=== PATIENT | male | born 1950 | race Caucasian/White ===

== ENCOUNTER 2016-08-05 09:09 | Day surgery (SDC) | payer OTHER ==
[~2016-08-05] VITALS: Ht 165.1 cm; Wt 75.7 kg
[2016-08-05] VITALS (13 sets, daily range): BP systolic 111–150; BP diastolic 73–97; PULSE 64–98; RESP 16–57; Ht 165.1 cm; Wt 75.7 kg
[~2016-08-05 09:09] MED LIST: CLINDAMYCIN 600 MG/50 ML D5W IVPB IVPB ONE; CLINDAMYCIN 600 MG/D5W (PMX) 50 ML IVPB ONE; FLUT9.9S NASAL; GABA100C14 PO; IBUP-1542 PO; LISI10TA2 PO; MECL25TA2 PO; PANT40TA3 PO; SOD CHLORIDE 0.9% 1,000 ML IV SCH; SULI150T39 PO; TAMS0.4C2 PO
[2016-08-05] MEDS ORDERED: BUPIVACAINE 0.25% (MPF) 30 ML INJ ONE (11:48)
[2016-08-05] MEDS ORDERED: POLYMYXIN/BACITRACIN 1L IRRIG ONE (11:48)
[2016-08-05] MEDS ORDERED: MIDAZOLAM 1 MG/ML 2 ML INJ ONE (11:58)
[2016-08-05] MEDS ORDERED: FENTAnyl 50 MCG/ML VIAL ONE (11:58)
[2016-08-05] MEDS ORDERED: DIPHENHYDRAMINE 50 MG INJ IV PRN (12:30)
[2016-08-05] MEDS ORDERED: hydrALAzine 20 MG INJ IV PRN (12:30)
[2016-08-05] MEDS ORDERED: LABETALOL HCL 20MG INJ IV PRN (12:30)
[2016-08-05] MEDS ORDERED: MEPERIDINE 25 MG INJ IV PRN (12:30)
[2016-08-05] MEDS ORDERED: ONDANSETRON 4 MG INJ IV PRN (12:30)
[2016-08-05] MEDS ORDERED: ROCURONIUM 50 MG INJ ONE (12:40)
[2016-08-05] MEDS ORDERED: GLYCOPYRROLATE 1 MG INJ ONE (12:40)
[2016-08-05] MEDS ORDERED: PROPOFOL 20 ML ONE (12:40)
[2016-08-05] MEDS ORDERED: LIDOCAINE 2% (SDV) 5 ML INJ ONE (12:40)
[2016-08-05] MEDS ORDERED: NEOSTIGMINE 3 MG/3 ML SYRINGE ONE (12:40)
[2016-08-05] MEDS ORDERED: ONDANSETRON 4 MG INJ ONE (12:41)
[2016-08-05] MEDS ORDERED: IBUPROFEN 800 MG TAB PO ONE (13:00)
[2016-08-05] MEDS: FENTAnyl 50 MCG/ML VIAL IV PRN ×2 (13:11→13:21)
--- NOTE | 2016-08-05 13:39 | OPR ---
DATE OF OPERATION: 08/05/2016 INDICATION: This is a 66-year-old male with a recurrent left inguinal hernia. He requests surgical repair. Risks, alternatives, benefits, and personnel were discussed with the patient. The patient expressed understanding and consents to the operation. PREOPERATIVE DIAGNOSIS: Recurrent left inguinal hernia. POSTOPERATIVE DIAGNOSIS: Recurrent left inguinal hernia. OPERATIONS: Open recurrent left inguinal hernia repair with Ultrapro hernia system mesh. SURGEON: Boston Acuña MD SPECIMENS: None. COMPLICATIONS: None. ANESTHESIA: General. DESCRIPTION OF PROCEDURE: The patient was taken to the OR and prepped and draped in the usual steri le fashion. Surgical timeout was performed. IV antibiotics were given. Left inguinal oblique inci kayla was made with a 10 blade. Dissection cautery was carried down to external oblique fascia. [place] e scar tissue was found. Additionally, there was an anteromedial hernia defect identified. This he rnia was then reduced. This area was then secured in place with the disk portion of the UltraPro he rnia system mesh and secured in place with interrupted 3-0 Vicryl and interrupted 0 Prolene. This m esh was fixed to the internal oblique and inguinal ligament. There was good hemostasis. Uri fas antoine was closed with interrupted 3-0 Vicryl. Skin was closed using skin gary. Local anesthesia w as injected. Dry dressings were applied. Dictated By: BOSTON DUFFY/IMELDA Conf#: [id number] DID#: [id number]
[2016-08-05] MEDS ORDERED: HYDROmorphONE 1 MG/ML SYG IM STA (16:00)
[2016-08-05] MEDS ORDERED: DIAZEPAM 5 MG TAB PO ONE (16:30)
== END 2016-08-05 16:50 | disposition home or self-care (01) ==
LOC: SDS 09:09
PROVIDERS: ATTEND Surgery
DX: K40.91 Unilateral inguinal hernia, without obstruction or gangrene, recurrent (principal); I10 Essential (primary) hypertension; E78.5 Hyperlipidemia, unspecified; E66.9 Obesity, unspecified; Z68.27 Body mass index [BMI] 27.0-27.9, adult; J45.909 Unspecified asthma, uncomplicated
CPT/HCPCS: 49505; C1781; J1170; J2175; J2250; J2405; J2710; J3010

== ENCOUNTER 2016-12-15 11:14 | Day surgery (SDC) | payer OTHER ==
[2016-12-15] VITALS (17 sets, daily range): BP systolic 102–142; BP diastolic 53–94; PULSE 66–88; RESP 11–22; Ht 165.1 cm; Wt 76.5 kg
[~2016-12-15] VITALS: Ht 165.1 cm; Wt 76.5 kg
[~2016-12-15 11:14] MED LIST changes: -CLINDAMYCIN 600 MG/D5W (PMX) 50 ML IVPB ONE; +GLYCOPYRROLATE 0.4 MG INJ ONE; +LIDOCAINE 2% (SDV) 5 ML INJ ONE; +NEOSTIGMINE 3 MG/3 ML SYRINGE ONE; +PROPOFOL 200 MG INJ ONE; +ROCURONIUM 50 MG INJ ONE; -SOD CHLORIDE 0.9% 1,000 ML IV SCH; +SUCCINYLCHOLINE CHLORIDE 100 MG/5 ML SYG IV ONE
[2016-12-15] MEDS ORDERED: VANCOMYCIN 1 GM in NS 250 ML IVPB ONE (11:30)
[2016-12-15] MEDS ORDERED: SOD CHLORIDE 0.9% 1,000 ML IV SCH (11:30)
[2016-12-15 12:47] LABS: ADD SCAN DIFF NO
[2016-12-15 12:49] LABS: BASOPHILS % 0.3 % (0.0-2.0); EOSINOPHILS # 0.1 10^3/ul (0.0-0.5); EOSINOPHILS % 1.4 % (0.0-7.0); HEMATOCRIT 49.7 % (42.0-52.0); HEMOGLOBIN 16.5 g/dl (14.0-18.0); LYMPHOCYTES # 2.2 10^3/ul (0.8-2.9); LYMPHOCYTES % 35.9 % (15.0-51.0); MEAN CORPUSCULAR HEMOGLOBIN 28.4 pg (29.0-33.0); MEAN CORPUSCULAR HGB CONC 33.2 g/dl (32.0-37.0); MEAN CORPUSCULAR VOLUME 85.7 fl (82.0-101.0); MEAN PLATELET VOLUME 9.5 fl (7.4-10.4); MONOCYTE # 0.5 10^3/ul (0.3-0.9); MONOCYTES % 8.2 % (0.0-11.0); NEUTROPHIL # 3.4 10^3/ul (1.6-7.5); NEUTROPHILS % 53.9 % (39.0-77.0); PLATELET COUNT 233 10^3/UL (140-415); RED CELL DISTRIBUTION WIDTH 14.1 % (11.5-14.5); WHITE BLOOD COUNT 6.2 10^3/ul (4.8-10.8)
--- NOTE | 2016-12-15 12:51 | RADRPT ---
PROCEDURE: XR Chest. CLINICAL INDICATION: Preoperative for left groin exploration. TECHNIQUE: Single frontal view. COMPARISON: 05/23/2014. FINDINGS: The lungs are clear. The heart size is normal. There is no pleural effusion. There is no pneumothorax. IMPRESSION: 1. Normal chest radiograph. 2. No change from 05/23/2014. RPTAT: QQ .Cortez Zimmer MD, MD Date Time Electronically viewed and signed by .Cortez Zimmer MD, MD on 12/15/2016 12:51 .R/
[2016-12-15 12:52] LABS: INR 0.95; PROTIME 12.7 Sec (12.2-14.2)
[2016-12-15 12:53] LABS: PARTIAL THROMBOPLASTIN TIME 30.1 Sec (25.0-35.0)
[2016-12-15 13:02] LABS: ALBUMIN/GLOBULIN RATIO 1.51; BILIRUBIN,INDIRECT 1.4 mg/dl (0-1.1); BILIRUBIN,TOTAL 1.4 mg/dl (0.2-1.3); TOTAL PROTEIN 8.3 g/dl (6.1-8.1)
[2016-12-15 13:04] LABS: CALCIUM 9.6 mg/dl (8.4-10.2); CREATININE 1.07 mg/dl (0.61-1.24); POTASSIUM 3.8 mmol/L (3.5-5.1)
[2016-12-15] MEDS ORDERED: FENTAnyl 50 MCG/ML VIAL ONE ×2 (15:40→16:43)
[2016-12-15] MEDS ORDERED: BUPIVACAINE 0.25%/EPI (SDV) 30 ML INJ ONE (15:56)
[2016-12-15] MEDS: FENTAnyl 50 MCG/ML VIAL IV PRN ×6 (16:49→17:34)
[2016-12-15] MEDS ORDERED: ONDANSETRON 4 MG INJ IV PRN (17:00)
[2016-12-15] MEDS ORDERED: ACETAMINOPHEN 500 MG TAB PO PRN (18:00)
--- NOTE | 2016-12-16 16:54 | RADRPT ---
Vent Rate: 76 bpm RR Interval: 0 msec VT Interval: 184 msec QRS Duration: 94 msec QT Interval: 386 msec QTC Interval: 434 msec P-R-T [place]: 53 - 40 - 59 degrees Normal sinus rhythm Normal ECG Electronically Signed By: [place] [id number]
--- NOTE | 2016-12-27 14:32 | OPR ---
DATE OF OPERATION: 12/15/2016 SURGEON: Peter Solorzano MD. PREOPERATIVE DIAGNOSIS: Chronic left groin pain. Rule out nerve entrapment. POSTOPERATIVE DIAGNOSIS: Chronic left groin pain. Rule out nerve entrapment. OPERATION PERFORMED: Left groin exploration and release of nerve entrapment. ANESTHESIA: General. INDICATION FOR PROCEDURE: The patient is known to me, he is a 66- year-old male who previously had repair of left inguinal hernia. He subsequently presented with continued left groin pain, suggestive of possible nerve entrapment. When the symptoms would not resolve, he requested a groin exploration and possible release of entrapped nerve. He consented and was scheduled for surgery. DESCRIPTION OF PROCEDURE: The patient was brought to the operating theatre and was placed under general anesthesia. The left groin was shaved, prepped and draped in the usual sterile fashion. Previous surgical incisional scar was re-incised with a #15 blade scalpel. The subcutaneous tissue was dissected with cautery down to the aponeurosis of the externa oblique. Very superiorly the aponeurosis was opened, the mesh was identified and structures consistent with possible entrapped nerves were identified and gently dissected out from under the mesh. Additional scar tissue in this area, which possibly may have consisted of nerve tissue, was resected, 2 pieces were resected and sent for pathology analysis. The wound was then irrigated. Minimal bleeding was controlled with cautery. The aponeurosis of the external oblique was reapproximated with running #4-0 Vicryl suture in the standard fashion. The skin incision was reapproximated with skin gary. The patient tolerated the procedure well. The patient was transported in stable condition to the Recovery room. ESTIMATED BLOOD LOSS: 10 mL. COMPLICATIONS: There were no complications. Dictated By: Peter Solorzano MD /kalin/lizet /Document#: [id number]
== END 2016-12-15 18:31 | disposition home or self-care (01) ==
LOC: SDS 11:14
PROVIDERS: ATTEND Surgery Surgical Oncology
DX: R10.32 Left lower quadrant pain (principal); I10 Essential (primary) hypertension; E66.9 Obesity, unspecified; Z68.28 Body mass index [BMI] 28.0-28.9, adult
CPT/HCPCS: 11403; 71010; 80053; 85025; 85610; 85730; 88305; 93005; J2710; J3010; J7999

== ENCOUNTER 2017-04-24 07:06 | Day surgery (SDC) | payer OTHER ==
[~2017-04-24] VITALS: Ht 165.1 cm; Wt 78.3 kg
[~2017-04-24 07:06] MED LIST changes: -CLINDAMYCIN 600 MG/50 ML D5W IVPB IVPB ONE; -GLYCOPYRROLATE 0.4 MG INJ ONE; -LIDOCAINE 2% (SDV) 5 ML INJ ONE; -NEOSTIGMINE 3 MG/3 ML SYRINGE ONE; -PROPOFOL 200 MG INJ ONE; -ROCURONIUM 50 MG INJ ONE; -SUCCINYLCHOLINE CHLORIDE 100 MG/5 ML SYG IV ONE
[2017-04-24 07:35] VITALS: BP 117/73; PULSE 79; RESP 18; Ht 165.1 cm; Wt 78.3 kg
[2017-04-24] MEDS ORDERED: LISI1TAB8 PO (07:38)
--- NOTE | 2017-04-24 08:14 | RADRPT ---
PROCEDURE: XR Chest. CLINICAL INDICATION: Preoperative TECHNIQUE: Single frontal view of the chest was obtained COMPARISON: CR CHEST 05/23/2014 FINDINGS: The heart and mediastinum are within normal limits. The lungs are clear. There is no pleural effusion or pneumothorax. RPTAT: AA IMPRESSION: No acute disease. .Maximo Becerra MD, MD Date Time Electronically viewed and signed by .Maximo Becerra MD, MD on 04/24/2017 08:13 .S/
[2017-04-24 08:37] LABS: BASOPHILS % 0.4 % (0.0-2.0); EOSINOPHILS # 0.1 10^3/ul (0.0-0.5); EOSINOPHILS % 2.6 % (0.0-7.0); HEMOGLOBIN 15.6 g/dl (14.0-18.0); LYMPHOCYTES # 1.5 10^3/ul (0.8-2.9); LYMPHOCYTES % 31.5 % (15.0-51.0); MEAN CORPUSCULAR HEMOGLOBIN 28.1 pg (29.0-33.0); MEAN CORPUSCULAR HGB CONC 32.5 g/dl (32.0-37.0); MEAN CORPUSCULAR VOLUME 86.3 fl (82.0-101.0); MEAN PLATELET VOLUME 9.7 fl (7.4-10.4); MONOCYTE # 0.3 10^3/ul (0.3-0.9); MONOCYTES % 7.1 % (0.0-11.0); NEUTROPHIL # 2.7 10^3/ul (1.6-7.5); NEUTROPHILS % 58.2 % (39.0-77.0); PLATELET COUNT 194 10^3/UL (140-415); RED BLOOD COUNT 5.56 10^6/ul (4.70-6.10); RED CELL DISTRIBUTION WIDTH 14.7 % (11.5-14.5); WHITE BLOOD COUNT 4.6 10^3/ul (4.8-10.8)
[2017-04-24 08:46] LABS: PROTIME 13.2 Sec (12.2-14.2)
[2017-04-24 08:47] LABS: PARTIAL THROMBOPLASTIN TIME 30.9 Sec (25.0-35.0)
[2017-04-24 08:48] LABS: ALBUMIN 4.1 g/dl (3.3-4.9); ALBUMIN/GLOBULIN RATIO 1.1; TOTAL PROTEIN 7.8 g/dl (6.1-8.1)
[2017-04-24 08:58] LABS: CALCIUM 9.3 mg/dl (8.4-10.2); CREATININE 0.99 mg/dl (0.61-1.24); POTASSIUM 4.1 mmol/L (3.5-5.1)
[2017-04-24] MEDS ORDERED: PROPOFOL 20 ML ONE (09:11)
[2017-04-24] MEDS ORDERED: ONDANSETRON 4 MG INJ ONE (09:11)
[2017-04-24] MEDS ORDERED: FENTAnyl 50 MCG/ML VIAL ONE (09:11)
[2017-04-24] MEDS ORDERED: DEXAMETHASONE 4 MG/ML 1 ML INJ ONE (09:12)
[2017-04-24] MEDS ORDERED: LIDOCAINE 1% (MDV) 20 ML INJ ONE (09:12)
--- NOTE | 2017-04-25 21:45 | RADRPT ---
Vent Rate: 70 bpm RR Interval: 0 msec [place] Interval: 190 msec QRS Duration: 94 msec QT Interval: 386 msec QTC Interval: 416 msec P-R-T [place]: 64 - 66 - 66 degrees Normal sinus rhythm Normal ECG Electronically Signed By: Gagan Choudhury [id number]
== END 2017-04-24 10:15 | disposition home or self-care (01) ==
LOC: SDS 07:06
PROVIDERS: ATTEND Surgery Surgical Oncology
DX: N50.819 Testicular pain, unspecified (principal); Z53.9 Procedure and treatment not carried out, unspecified reason
CPT/HCPCS: 71010; 80053; 85025; 85610; 85730; 93005; J1100; J2405; J3010